=== PATIENT | female | born 1985 ===

== ENCOUNTER 2017-01-30 08:48 | Emergency (ER) | payer OTHER ==
[2017-01-30 08:48] VITALS: BMI 26.4
[2017-01-30 09:04] VITALS: RESP 18
--- NOTE | 2017-01-30 09:34 | ED PDOC ---
Arrival/HPI - General Chief Complaint: Female Genitourinary Time Seen by Provider: 01/30/17 08:59 Historian: Patient - History of Present Illness Narrative History of Present Illness (Text): 01/30/17 09:33 A 31 year old female with A0, who is 12 weeks , presents to the emergency department complaining of vaginal spotting since yesterday. Patient reports light pink vaginal discharge. Patient denies any fever, nausea, vomiting , abdominal pain, urinary symptoms, hematuria, chest pain, shortness of breath or any other complaints. PMD: Dr. Lockwood [facility] [employer]: Dr. Zeus Ortega Time/Duration: Other (Yesterday) Symptom Course: Unchanged Quality: Other Context: Home Past Medical History - Provider Review Nursing Documentation Reviewed: Yes - Infectious Disease Hx of Infectious Diseases: None - Reproductive Menopause: No - Psychiatric Hx Depression: No Hx Emotional Abuse: No Hx Physical Abuse: No Hx Substance Use: No - Surgical History Hx Section: Yes - Anesthesia Hx Anesthesia: Yes Hx Anesthesia Reactions: No - Suicidal Assessment Feels Threatened In Home Enviroment: No Family/Social History - Physician Review Nursing Documentation Reviewed: Yes Family/Social History: No Known Family HX Smoking Status: Current Some Days Smoker Hx Alcohol Use: No Hx Substance Use: No Allergies/Home Meds Allergies/Adverse Reactions: Allergies No Known Allergies Allergy (Verified 01/30/17 09:10) Home Medications: Home Meds Medication Instructions Recorded Confirmed Pnv95/Ferrous Fumarate/FA 1 tab PO DAILY 01/30/17 01/30/17 [Prenavite] oxyCODONE [oxycodone Hydrochloride] 22.5 mg PO DAILY 01/30/17 01/30/17 Review of Systems - Physician Review All systems were reviewed & negative as marked: Yes - Review of Systems Constitutional: absent: Fevers, Night Sweats Respiratory: absent: SOB Cardiovascular: absent: Chest Pain Gastrointestinal: absent: Abdominal Pain, Nausea, Vomiting Genitourinary Female: Other (Vaginal spotting, Light pink vaginal discharge). absent: Dysuria, Frequency, Hematuria, Urine Output Changes Physical Exam Vital Signs Reviewed: Yes Vital Signs Temp Pulse Resp BP Pulse Ox 01/30/17 12:00 98.0 F 82 18 113/71 98 01/30/17 10:59 91 H 18 111/69 98 01/30/17 08:56 98 F 104 H 18 109/74 100 Temperature: Afebrile Blood Pressure: Normal Pulse: Tachycardic Respiratory Rate: Normal Appearance: Positive for: Well-Appearing, Non-Toxic, Comfortable Pain Distress: None Mental Status: Positive for: Alert and Oriented X 3 - Systems Exam Head: Present: Atraumatic, Normocephalic Pupils: Present: PERRL Extroacular Muscles: Present: EOMI Conjunctiva: Present: Normal Mouth: Present: Moist Mucous Membranes Neck: Present: Normal Range of Motion Respiratory/Chest: Present: Clear to Auscultation, Good Air Exchange. No: Respiratory Distress, Accessory Muscle Use Cardiovascular: Present: Regular Rate and Rhythm, Normal S1, S2. No: Murmurs Abdomen: Present: Normal Bowel Sounds. No: Tenderness, Distention, Peritoneal Signs Genitourinary/Pelvic Exam: Present: Normal External Genitalia, Cervical os Closed, Other (Pelvic exam perfomred by me and chaperoned by nurse Janine). No: Vaginal Discharge, Vaginal Bleeding, Vaginal Lesions, Adenexal Tenderness, Adenexal Mass, Cervical Motion Tendernes, Odor Back: Present: Normal Inspection Upper Extremity: Present: Normal Inspection. No: Cyanosis, Edema Lower Extremity: Present: Normal Inspection. No: Edema Neurological: Present: GCS=15, CN II-XII Intact, Speech Normal Skin: Present: Warm, Dry, Normal Color. No: Rashes Psychiatric: Present: Alert, Oriented x 3, Normal Insight, Normal Concentration Medical Decision Making ED Course and Treatment: 01/30/17 09:33 Impression: A 31 year old female with vaginal spotting. Patient notes light pink discharge. Differential Diagnosis included but are not limited to: Missed Plan: -- OB transvaginal ultrasound -- Labs -- Reassess and disposition Progress Notes: Report Date : 01/30/2017 10:37:08 Procedure: OB transvaginal ultrasound Dictator : Missy Espinoza V. IMPRESSION: The intrauterine gestation present corresponds to a crown-rump length of 11 weeks 3 days. There is no significant appearing amniotic fluid surrounding it. No cardiac activity is noted. Findings are consistent with demise. 01/30/17 11:[address] Urena, who works with Dr. Ortega, who states to instruct patient to make an appointment to seem the office. I have discussed the results and plan with the patient, who expresses understanding. Patient in agreement with plan to be discharged home. Patient is stable for discharge. Patient was instructed to follow up with [facility] [employer] or return if bleeding persists or worsen, experiences abdominal pain or new concerning symptoms arise. 01/30/17 12:47 Patients Rh type and screen is O+. Patient is stable for discharge. Patient states her OBGYN office already called to set her up with an appointment tomorrow. - Lab Interpretations Lab Results: 01/30/17 09:43 01/30/17 09:43 Lab Results 01/30/17 11:30: Blood Type O POSITIVE, Antibody Screen Negative, BBK History Checked No verified bt 01/30/17 09:43: Beta HCG, Quant 61137.00 H 01/30/17 09:43: Sodium 139, Potassium 4.3, Chloride 100, Carbon Dioxide 27, Anion Gap 16, BUN 7, Creatinine 0.5, Est GFR ( Amer) > 60, Est GFR (Non- Af Amer) > 60, Random Glucose 85, Calcium 9.8, Total Bilirubin 0.4, AST 24, ALT 27, Alkaline Phosphatase 64, Total Protein 7.9, Albumin 4.2, Globulin 3.7, Albumin/Globulin Ratio 1.1 01/30/17 09:43: Urine Color Yellow, Urine Appearance Clear, Urine pH 7.0, Ur Specific [place] 1.020, Urine Protein Negative, Urine Glucose (UA) Negative, Urine Ketones Negative, Urine Blood Negative, Urine Nitrate Negative, Urine Bilirubin Negative, Urine Urobilinogen 0.2, Ur Leukocyte Esterase Negative 01/30/17 09:43: PT 11.2, INR 1.04, APTT 31.1 H 01/30/17 09:43: WBC 10.4, RBC 4.07, Hgb 12.1, Hct 35.4 L, MCV 87.0, MCH 29.7, MCHC 34.2, RDW 12.2, Plt Count 238, MPV 10.7, Gran % 73.0 H, Lymph % (Auto) 18.8 L, [place] % (Auto) 6.0, Eos % (Auto) 1.9, Baso % (Auto) 0.3, Gran # 7.61 H, Lymph # 2.0, [place] # 0.6, Eos # 0.2, Baso # 0.03 - RAD Interpretation Radiology Orders: 01/30/17 09:35 OB TRANSVAGINAL [US] Stat - Scribe Statement The provider has reviewed the documentation as recorded by the Geibnuria Palacios Provider Scribe Attestation: All medical record entries made by the Scribe were at my direction and personally dictated by me. I have reviewed the chart and agree that the record accurately reflects my personal performance of the history, physical exam, medical decision making, and the department course for this patient. I have also personally directed, reviewed, and agree with the discharge instructions and disposition. Disposition/Present on Arrival - Present on Arrival Any Indicators Present on Arrival: No History of DVT/PE: No History of Uncontrolled Diabetes: No Urinary Catheter: No History of Decub. Ulcer: No History Surgical Site Infection Following: None - Disposition Have Diagnosis and Disposition been Completed?: Yes Diagnosis: Missed Disposition: HOME/ ROUTINE Disposition Time: 11:48 Patient Plan: Discharge Condition: GOOD Discharge Instructions (ExitCare): Threatened Miscarriage (ED) Additional Instructions: Ms Pacheco, thank you for letting us take care of you today. Your provider was Dr. Munguia. You were treated for Missed . The emergency medical care you received today was directed at your acute symptoms. If you were prescribed any medication, please fill it and take as directed. It may take several days for your symptoms to resolve. Return to the Emergency Department if your symptoms worsen, do not improve, or if you have any other problems. Please contact your doctor, JUAN LUIS Montejo, or call one of the physicians/ clinics you have been referred to that are listed on the Patient Visit Information form that is included in your discharge packet for follow up in 1-2 days. Bring any paperwork you were given at discharge with you along with any medications you are taking to your follow up visit. Our treatment cannot replace ongoing medical care by a primary care provider (PCP) outside of the emergency department. Thank you for allowing the [facility] team to be part of your care today. If you had an X-Ray or CT scan: A Radiologist will review the ED reading if any change in treatment is needed we will contact you. If you had a blood, urine, or wound culture: It will take several days for the results, if any change in treatment is needed we will contact you. If you had an STI test: It will take 48 hours for the results. Please call after 1 week if you have not heard back. Referrals: Zeus Ortega MD [Medical Doctor] - Follow up with primary Tatiana Lockwood MD [Primary Care Provider] - Follow up with primary Forms: WORK NOTE
[2017-01-30 09:59] LABS: ADD MANUAL DIFF? NO
[2017-01-30 10:04] LABS: URINE BILIRUBIN NEGATIVE (NEGATIVE); URINE BLOOD NEGATIVE (NEGATIVE); URINE GLUCOSE (UA) NEGATIVE (NEGATIVE); URINE KETONE NEGATIVE (NEGATIVE); URINE LEUKOCYTE ESTERASE NEGATIVE Leu/uL (NEGATIVE); URINE PROTEIN NEGATIVE mg/dL (<30 mg/dL); URINE UROBILINOGEN 0.2 E.U./dL (<1 E.U./dL)
[2017-01-30 10:07] LABS: URINE APPEARANCE CLEAR (CLEAR); URINE COLOR YELLOW (YELLOW)
[2017-01-30 10:12] LABS: BASO # 0.03 K/mm3 (0.0-2.0); BASO % 0.3 % (0.0-3.0); EOS # 0.2 (0.0-0.7); EOS % 1.9 % (1.5-5.0); GRAN # 7.61 (1.4-6.5); HEMATOCRIT 35.4 % (36.0-48.0); LYMPH % 18.8 % (22.0-35.0); MEAN CORPUSCULAR HEMOGLOBIN 29.7 pg (25.0-35.0); MEAN CORPUSCULAR HGB CONC 34.2 g/dl (31.0-37.0); MEAN PLATELET VOLUME 10.7 fl (7.0-11.0); MONO # 0.6 (0.1-0.6); PLATELET COUNT 238 10^3/uL (120.0-450.0); RED CELL DISTRIBUTION WIDTH 12.2 % (11.5-14.5); WHITE BLOOD COUNT 10.4 10^3/ul (4.5-11.0)
[2017-01-30 10:15] LABS: ALB/GLOB RATIO 1.1 (1.1-1.8); ALKALINE PHOSPHATASE 64 U/L (38-133); ALT/SGPT 27 U/L (7-56); AST/SGOT 24 U/L (15-39); BILIRUBIN,TOTAL 0.4 mg/dL (0.2-1.3); BLOOD UREA NITROGEN 7 mg/dL (7-21); CALCIUM 9.8 mg/dL (8.4-10.5); CARBON DIOXIDE 27 mmol/L (21-33); CHLORIDE 100 mmol/L (98-107); GFR AFRICAN-AMERICAN > 60; GLUCOSE,RANDOM 85 mg/dL (70-110); POTASSIUM 4.3 mmol/L (3.6-5.0); SODIUM 139 mmol/L (132-148); TOTAL PROTEIN 7.9 g/dL (5.8-8.3)
[2017-01-30 10:17] LABS: INR 1.04 (0.93-1.08); PARTIAL THROMBOPLASTIN TIME 31.1 Seconds (23.7-30.8)
--- NOTE | 2017-01-30 10:38 | US ---
HISTORY: , 12 weeks, vag spotting COMPARISON: None available. TECHNIQUE: Transvaginal FINDINGS: UTERUS: Measures 11.1 x 6.9 x 7.3 cm. Anteverted No fibroids appreciated. An intrauterine gestation without cardiac activity is present. And pole is present its crown-rump length is 4.6 cm corresponding to a E gestation of 11 weeks 3 days. No cardiac activity is present. No significant appearing amniotic fluid surrounding the fetus is appreciated either. CERVIX: No cervical abnormality identified. RIGHT OVARY: Measures 2.2 x 1.1 x 1.2 cm. No solid mass. Normal flow. LEFT OVARY: Measures 2.4 x 2.0 x 1.8 cm. No solid mass. Normal flow. FREE FLUID: No significant free fluid noted. OTHER FINDINGS: None. IMPRESSION: The intrauterine gestation present corresponds to a crown-rump length of 11 weeks 3 days. There is no significant appearing amniotic fluid surrounding it. No cardiac activity is noted. Findings are consistent with demise.
[2017-01-30 11:00] VITALS: O2SAT 98
[2017-01-30 12:30] VITALS: BP 113/71; PULSE 82; TEMP 98
== END 2017-01-30 12:53 | disposition home or self-care (01) ==
LOC: ED 08:48
DX: O02.1 Missed abortion (principal); Z3A.11 11 weeks gestation of pregnancy